=== PATIENT | male | born 1955 | race Two or more races ===

== ENCOUNTER 2019-05-29 09:38 | Inpatient (IN) | payer MEDICARE ==
[2019-05-29] VITALS (16 sets, daily range): BP systolic 105–143; BP diastolic 65–91
[~2019-05-29] VITALS: Ht 165.1 cm; Wt 73.5 kg
[2019-05-29] MEDS ORDERED: ETOMIDATE 2MG/ML 10ML VIAL IV ONE (09:41)
[2019-05-29] MEDS ORDERED: SUCCINYLCHOLINE CHLORIDE 200MG/10ML IV ONE (09:41)
[2019-05-29] MEDS ORDERED: PROPOFOL 10MG/ML 100ML 100 ML IV ONE (09:59)
[2019-05-29] MEDS ORDERED: IPRATROPIUM BROMIDE (0.02%) 0.5MG/2.5ML NEB HHN ONE (10:15)
[2019-05-29] MEDS ORDERED: SODIUM CHLORIDE 0.9% 1000ML BAG (SEPSIS BOLUS) IV ONE (10:15)
[2019-05-29] MEDS ORDERED: ALBUTEROL (0.083%) 2.5MG/3ML NEB HHN ONE (10:15)
[2019-05-29] MEDS ORDERED: CEFTRIAXONE 2 G PREMIX 50 ML IV SCH (10:15)
[2019-05-29] MEDS ORDERED: LEVOFLOXACIN 750MG PREMIX 150 ML IV SCH (10:15)
[2019-05-29 10:18] LABS: BASOPHILS % 0.7 % (0.0-2.0); EOSINOPHILS % 1.2 % (0.0-5.0); HEMATOCRIT. 39.6 % (42.0-52.0); HEMOGLOBIN. 13.1 g/dL (14.0-18.0); MEAN CORPUSCULAR HEMOGLOBIN 31.3 pg (28.0-32.0); MEAN CORPUSCULAR VOLUME 94.7 fL (80.0-94.0); MONOCYTES % 7.3 % (2.0-8.0); NEUTROPHILS % 67.8 % (40.0-76.0); PLATELET 329 x1000/uL (130-400); RED BLOOD CELL COUNT 4.18 mill/uL (4.7-6.1); RED CELL DISTRIBUTION WIDTH 15.3 % (11.6-14.6)
[2019-05-29 10:26] LABS: CHLORIDE 108 mEq/L (98-107)
[2019-05-29 10:52] LABS: INR 1.1; PROTHROMBIN TIME 11.4 sec (9.6-11.0)
[2019-05-29 10:55] LABS: CLARITY URINE CLOUDY (CLEAR); COLOR URINE YELLOW (YELLOW); KETONES URINE TRACE (NEGATIVE); LEUKOCYTE ESTERASE URINE 1+ (NEGATIVE); NITRITE URINE NEGATIVE (NEGATIVE); OCCULT BLOOD URINE 1+ (NEGATIVE); PROTEIN URINE TRACE (NEGATIVE); SPECIFIC GRAVITY URINE 1.022 (1.005-1.030); UROBILINOGEN URINE 0.2 E.U./dL (0.2-1.0)
[2019-05-29] MEDS ORDERED: GUAIFENESIN 200MG/10ML SUGAR FREE UDC PO PRN (12:45)
[2019-05-29] MEDS ORDERED: CLONIDINE 0.1MG TABLET PO PRN (12:45)
[2019-05-29] MEDS ORDERED: CEFTRIAXONE 1 G PREMIX 50 ML IV SCH (12:45)
[2019-05-29] MEDS ORDERED: MAGNESIUM/ALUMINUM HYDROXIDE/SIMETHICONE 30ML UDC PO PRN (12:45)
[2019-05-29] MEDS ORDERED: ONDANSETRON HCL 4MG/2ML INJ IV PRN (12:45)
[2019-05-29] MEDS ORDERED: DOCUSATE SODIUM 100MG CAPSULE PO PRN (12:45)
[2019-05-29] MEDS ORDERED: ACETAMINOPHEN 325MG TABLET PO PRN (12:45)
[2019-05-29 12:57] LABS: PHOSPHORUS 4.2 mg/dL (2.5-4.9)
[2019-05-29 13:09] LABS: BG BASE EXCESS -5.3 mmol/L (-2.0-2.0); BG CARBOXYHEMOGLOBIN 0.2 % (0.5-1.5); BG DEOXYHEMOGLOBIN 0.3 % (0.0-5.0); BG FRACTION INSPIRED OXYGEN 100; BG HCO3 ACT 20.8 mmol/L (22.0-26.0); BG METHEMOGLOBIN 0.3 % (0.0-1.5); BG OXYGEN SATURATION 99.7 % (92.0-98.5); BG OXYHEMOGLOBIN 99.2 % (94.0-97.0); BG PCO2 42.9 mmHg (35.0-45.0); BG PH 7.303 (7.350-7.450); BG PO2 481.6 mmHg (75.0-100.0); BG SAMPLE SITE RIGHT BRACHIAL; BG TIDAL VOLUME(mL) 550 mL; BG TOTAL HEMOGLOBIN 11.8 g/dL (12.0-18.0); BG VENT MODE VENT - A/C; BG VENT RATE 16 set
[2019-05-29] MEDS ORDERED: PROPOFOL 10MG/ML 100ML 100 ML IV SCH (14:15)
[2019-05-29] MEDS ORDERED: DEXTROSE 50% WATER 50ML SYRINGE IV PRN (14:45)
[2019-05-29] MEDS ORDERED: ENOXAPARIN 40MG/0.4ML SYR SUBCUT SCH (16:00)
[2019-05-29] MEDS: SODIUM CHLORIDE 0.9% 1,000 ML IV SCH (16:06)
[2019-05-29] MEDS: BLOOD SUGAR DIAGNOSTIC STRIP TEST SCH ×2 (17:13→20:14)
[2019-05-29] MEDS: METRONIDAZOLE 500 MG PREMIX 100 ML IV SCH ×2 (17:19→23:30)
[2019-05-29] MEDS: FENTANYL CITRATE/PF 500 MCG in SODIUM CHLORIDE 0.9% 40 ML IV PRN ×2 (17:41→21:41)
[2019-05-29] MEDS: MIDAZOLAM HCL 50 MG in DEXTROSE 5% WATER 40 ML IV PRN ×2 (17:42→23:15)
[2019-05-29 18:17] LABS: CREATINE KINASE MB FRACTION 6.8 ng/mL (0.5-3.6)
[2019-05-29] MEDS: INSULIN LISPRO 100 UNITS/ML SUBCUT SCH ×2 (18:20→20:14)
[2019-05-29 20:17] LABS: *AMPHETAMINES SCREEN URINE NEGATIVE (NEGATIVE); METHADONE URINE SCREEN NEGATIVE (NEGATIVE); OPIATES URINE SCREEN PRESUMTIVE POSITIVE (NEGATIVE); PHENCYCLIDINE URINE SCREEN NEGATIVE (NEGATIVE)
[2019-05-29 20:18] LABS: *BARBITURATES SCREEN URINE NEGATIVE (NEGATIVE); *BENZODIAZEPINES SCREEN URINE PRESUMTIVE POSITIVE (NEGATIVE); *COCAINE SCREEN URINE NEGATIVE (NEGATIVE); CANNABINOID URINE SCREEN NEGATIVE (NEGATIVE)
[2019-05-30] VITALS (60 sets, daily range): BP systolic 93–187; BP diastolic 60–116
[2019-05-30 00:27] LABS: CREATINE KINASE MB FRACTION 5.2 ng/mL (0.5-3.6)
[2019-05-30] MEDS: SODIUM CHLORIDE 0.9% 1,000 ML IV SCH ×2 (03:00→14:34)
[2019-05-30] MEDS: FENTANYL CITRATE/PF 500 MCG in SODIUM CHLORIDE 0.9% 40 ML IV PRN ×4 (03:08→20:18)
[2019-05-30 05:24] LABS: BASOPHILS % 0.6 % (0.0-2.0); EOSINOPHILS % 1.6 % (0.0-5.0); HEMATOCRIT. 33.6 % (42.0-52.0); HEMOGLOBIN. 11.1 g/dL (14.0-18.0); LYMPHOCYTES % 19.1 % (20.0-50.0); MEAN CORPUSCULAR HEMOGLOBIN 31.3 pg (28.0-32.0); MEAN PLATELET VOLUME 7.7 fl (7.4-10.4); MONOCYTES % 8.3 % (2.0-8.0); NEUTROPHILS % 70.4 % (40.0-76.0); PLATELET 232 x1000/uL (130-400); RED BLOOD CELL COUNT 3.54 mill/uL (4.7-6.1); RED CELL DISTRIBUTION WIDTH 14.9 % (11.6-14.6)
[2019-05-30 05:34] LABS: CHLORIDE 115 mEq/L (98-107)
[2019-05-30 05:47] LABS: LDL CHOLESTEROL 74 mg/dL (5-100)
[2019-05-30 05:48] LABS: HDL CHOLESTEROL 33 mg/dL (40-59)
[2019-05-30] MEDS: BLOOD SUGAR DIAGNOSTIC STRIP TEST SCH ×4 (08:07→20:59)
[2019-05-30] MEDS: INSULIN LISPRO 100 UNITS/ML SUBCUT SCH ×4 (08:07→20:59)
[2019-05-30] MEDS: IPRATROPIUM/ALBUTEROL 0.5-3(2.5)MG/3ML NEB HHN PRN (08:08)
[2019-05-30] MEDS: PANTOPRAZOLE SODIUM 40 MG/VIAL IV SCH (08:16)
[2019-05-30] MEDS: METRONIDAZOLE 500 MG PREMIX 100 ML IV SCH ×2 (08:17→16:35)
[2019-05-30 08:33] LABS: BG BASE EXCESS -1.7 mmol/L (-2.0-2.0); BG CARBOXYHEMOGLOBIN 0.3 % (0.5-1.5); BG DEOXYHEMOGLOBIN 1.8 % (0.0-5.0); BG FRACTION INSPIRED OXYGEN 35; BG HCO3 ACT 23.2 mmol/L (22.0-26.0); BG METHEMOGLOBIN 0.2 % (0.0-1.5); BG OXYGEN SATURATION 98.2 % (92.0-98.5); BG OXYHEMOGLOBIN 97.7 % (94.0-97.0); BG PH 7.381 (7.350-7.450); BG PO2 131.6 mmHg (75.0-100.0); BG SAMPLE SITE LEFT BRACHIAL; BG TIDAL VOLUME(mL) 550 mL; BG TOTAL HEMOGLOBIN 11.8 g/dL (12.0-18.0); BG VENT MODE VENT - A/C; BG VENT RATE 16 set
[2019-05-30] MEDS: HYDRALAZINE 20MG/ML VIAL IV PRN (08:41)
[2019-05-30] MEDS: CEFTRIAXONE 1 G PREMIX 50 ML IV SCH (09:32)
[2019-05-30] MEDS ORDERED: LORAZEPAM 2MG/ML CPJ IV PRN (10:15)
[2019-05-30] MEDS: LORAZEPAM 2MG/ML CPJ IV PRN ×2 (10:42→21:21)
[2019-05-30] MEDS ORDERED: DILTIAZEM HCL 5MG/ML 5ML VIAL IV PRN (11:15)
[2019-05-30] MEDS ORDERED: IOHEXOL-350 100 ML BOTTLE ONE (12:14)
[2019-05-30] MEDS: MIDAZOLAM HCL 50 MG in DEXTROSE 5% WATER 40 ML IV PRN ×2 (12:40→18:21)
[2019-05-30] MEDS: FOLIC ACID 1MG TABLET PO SCH (13:10)
[2019-05-30] MEDS: THIAMINE HCL 100MG TABLET PO SCH (13:11)
[2019-05-30] MEDS ORDERED: ENOXAPARIN 80MG/0.8ML SYR SUBCUT SCH (14:30)
[2019-05-30] MEDS: IPRATROPIUM/ALBUTEROL 0.5-3(2.5)MG/3ML NEB HHN SCH (16:51)
[2019-05-30] MEDS: DIPHENHYDRAMINE 50MG/ML VIAL IV PRN (21:21)
[2019-05-30] MEDS ORDERED: SODIUM CHLORIDE 0.9% IV PRN (22:28)
[2019-05-30] MEDS ORDERED: FENTANYL CITRATE IV PRN (22:28)
[2019-05-30] MEDS ORDERED: DEXTROSE 5% IV PRN (22:28)
[2019-05-30] MEDS ORDERED: WATER IV PRN (22:28)
[2019-05-30] MEDS ORDERED: MIDAZOLAM HCL IV PRN (22:28)
[2019-05-30] MEDS ORDERED: MIDAZOLAM HCL 100 MG in DEXT 5% WATER 80 ML IV PRN (22:33)
[2019-05-30] MEDS ORDERED: FENTANYL CITRATE/PF 1,000 MCG in SODIUM CHLORIDE 0.9% 80 ML IV PRN (22:33)
[2019-05-30] MEDS: ENOXAPARIN 80MG/0.8ML SYR SUBCUT SCH (23:53)
[2019-05-31] VITALS (85 sets, daily range): BP systolic 107–186; BP diastolic 65–126
[2019-05-31] MEDS: METRONIDAZOLE 500 MG PREMIX 100 ML IV SCH ×3 (01:00→17:20)
[2019-05-31] MEDS: SODIUM CHLORIDE 0.9% 1,000 ML IV SCH ×2 (04:51→17:41)
[2019-05-31] MEDS: DIPHENHYDRAMINE 50MG/ML VIAL IV PRN ×2 (05:23→18:42)
[2019-05-31] MEDS: LORAZEPAM 2MG/ML CPJ IV PRN ×2 (05:23→18:41)
[2019-05-31 05:24] LABS: BASOPHILS % 0.8 % (0.0-2.0); EOSINOPHILS % 3.8 % (0.0-5.0); HEMATOCRIT. 31.3 % (42.0-52.0); HEMOGLOBIN. 10.5 g/dL (14.0-18.0); LYMPHOCYTES % 19.3 % (20.0-50.0); MEAN CORPUSCULAR HEMOGLOBIN 31.7 pg (28.0-32.0); MEAN CORPUSCULAR VOLUME 94.1 fL (80.0-94.0); MEAN PLATELET VOLUME 7.9 fl (7.4-10.4); MONOCYTES % 8.6 % (2.0-8.0); NEUTROPHILS % 67.5 % (40.0-76.0); PLATELET 207 x1000/uL (130-400); RED BLOOD CELL COUNT 3.32 mill/uL (4.7-6.1); RED CELL DISTRIBUTION WIDTH 14.4 % (11.6-14.6)
[2019-05-31 05:25] LABS: CHLORIDE 111 mEq/L (98-107)
[2019-05-31] MEDS: IPRATROPIUM/ALBUTEROL 0.5-3(2.5)MG/3ML NEB HHN SCH ×4 (07:39→20:15)
[2019-05-31] MEDS: INSULIN LISPRO 100 UNITS/ML SUBCUT SCH ×4 (08:05→21:00)
[2019-05-31] MEDS: BLOOD SUGAR DIAGNOSTIC STRIP TEST SCH ×4 (08:05→21:02)
[2019-05-31 08:22] LABS: BG BASE EXCESS -2.2 mmol/L (-2.0-2.0); BG CARBOXYHEMOGLOBIN 0.3 % (0.5-1.5); BG DEOXYHEMOGLOBIN 2.5 % (0.0-5.0); BG FRACTION INSPIRED OXYGEN 35; BG HCO3 ACT 21.9 mmol/L (22.0-26.0); BG METHEMOGLOBIN 0.3 % (0.0-1.5); BG OXYGEN SATURATION 97.5 % (92.0-98.5); BG OXYHEMOGLOBIN 96.9 % (94.0-97.0); BG PCO2 35.5 mmHg (35.0-45.0); BG PH 7.409 (7.350-7.450); BG PO2 110.6 mmHg (75.0-100.0); BG SAMPLE SITE RIGHT RADIAL; BG TIDAL VOLUME(mL) 550 mL; BG TOTAL HEMOGLOBIN 10.8 g/dL (12.0-18.0); BG VENT MODE VENT - A/C; BG VENT RATE 16 set
[2019-05-31] MEDS: FOLIC ACID 1MG TABLET PO SCH (09:07)
[2019-05-31] MEDS: PANTOPRAZOLE SODIUM 40 MG/VIAL IV SCH (09:07)
[2019-05-31] MEDS: THIAMINE HCL 100MG TABLET PO SCH (09:07)
[2019-05-31] MEDS: ENOXAPARIN 80MG/0.8ML SYR SUBCUT SCH ×2 (09:08→21:02)
[2019-05-31] MEDS ORDERED: POTASSIUM CHLORIDE INJ 40 MEQ in DEXT 5% WATER 250 ML IV ONE (10:30)
[2019-05-31] MEDS: CEFTRIAXONE 1 G PREMIX 50 ML IV SCH (10:55)
[2019-05-31 13:21] LABS: BG BASE EXCESS -1.6 mmol/L (-2.0-2.0); BG CARBOXYHEMOGLOBIN 0.2 % (0.5-1.5); BG FRACTION INSPIRED OXYGEN 35; BG HCO3 ACT 22.7 mmol/L (22.0-26.0); BG METHEMOGLOBIN 0.1 % (0.0-1.5); BG OXYHEMOGLOBIN 96.7 % (94.0-97.0); BG PCO2 37.2 mmHg (35.0-45.0); BG PH 7.404 (7.350-7.450); BG PO2 94.7 mmHg (75.0-100.0); BG PRESSURE SUPPORT 8; BG SAMPLE SITE RIGHT RADIAL; BG TOTAL HEMOGLOBIN 11.6 g/dL (12.0-18.0); BG VENT MODE VENT - CPAP
[2019-05-31] MEDS: HYDRALAZINE 20MG/ML VIAL IV PRN (14:02)
[2019-05-31] MEDS: HALOPERIDOL LACTATE 5MG/ML VIAL IM PRN (21:20)
[2019-05-31] MEDS ORDERED: KCL 20MEQ/100ML PREMIX 100 ML IV NR (22:30)
[2019-06-01] VITALS (32 sets, daily range): BP systolic 135–169; BP diastolic 78–149
[2019-06-01] MEDS: IPRATROPIUM/ALBUTEROL 0.5-3(2.5)MG/3ML NEB HHN SCH ×6 (00:23→20:13)
[2019-06-01] MEDS: METRONIDAZOLE 500 MG PREMIX 100 ML IV SCH ×3 (00:45→15:46)
[2019-06-01] MEDS: HALOPERIDOL LACTATE 5MG/ML VIAL IM PRN (01:53)
[2019-06-01 04:24] LABS: CHLORIDE 112 mEq/L (98-107)
[2019-06-01 04:26] LABS: BASOPHILS % 0.3 % (0.0-2.0); EOSINOPHILS % 0.3 % (0.0-5.0); HEMATOCRIT. 32.4 % (42.0-52.0); LYMPHOCYTES % 9.1 % (20.0-50.0); MEAN CORPUSCULAR VOLUME 94.1 fL (80.0-94.0); MEAN PLATELET VOLUME 7.9 fl (7.4-10.4); MONOCYTES % 7.4 % (2.0-8.0); NEUTROPHILS % 82.9 % (40.0-76.0); PLATELET 212 x1000/uL (130-400); RED BLOOD CELL COUNT 3.44 mill/uL (4.7-6.1); RED CELL DISTRIBUTION WIDTH 14.5 % (11.6-14.6)
[2019-06-01] MEDS: HYDROCODONE/ACETAMINOPHEN 5/325MG TABLET PO PRN ×4 (05:31→21:31)
[2019-06-01] MEDS: SODIUM CHLORIDE 0.9% 1,000 ML IV SCH ×2 (06:53→20:28)
[2019-06-01] MEDS ORDERED: POTASSIUM CHLORIDE 20MEQ/PACKET PO ONE (07:00)
[2019-06-01] MEDS ORDERED: POTASSIUM CHLORIDE INJ 40 MEQ in DEXT 5% WATER 250 ML IV SCH (08:00)
[2019-06-01] MEDS: INSULIN LISPRO 100 UNITS/ML SUBCUT SCH ×4 (08:20→20:29)
[2019-06-01] MEDS: BLOOD SUGAR DIAGNOSTIC STRIP TEST SCH ×4 (08:25→20:29)
[2019-06-01] MEDS: FOLIC ACID 1MG TABLET PO SCH (08:31)
[2019-06-01] MEDS: ENOXAPARIN 80MG/0.8ML SYR SUBCUT SCH ×2 (08:31→20:31)
[2019-06-01] MEDS: PANTOPRAZOLE SODIUM 40 MG/VIAL IV SCH (08:31)
[2019-06-01] MEDS: THIAMINE HCL 100MG TABLET PO SCH (08:31)
[2019-06-01] MEDS: CEFTRIAXONE 1 G PREMIX 50 ML IV SCH (10:28)
[2019-06-01] MEDS: ATORVASTATIN CALCIUM 10MG TABLET PO SCH (20:28)
[2019-06-02] VITALS (18 sets, daily range): BP systolic 128–165; BP diastolic 73–98
[2019-06-02] MEDS: METRONIDAZOLE 500 MG PREMIX 100 ML IV SCH ×3 (00:30→16:29)
[2019-06-02] MEDS: HYDROCODONE/ACETAMINOPHEN 5/325MG TABLET PO PRN ×2 (01:16→05:17)
[2019-06-02] MEDS: IPRATROPIUM/ALBUTEROL 0.5-3(2.5)MG/3ML NEB HHN SCH ×6 (04:00→20:00)
[2019-06-02 06:17] LABS: BASOPHILS % 0.5 % (0.0-2.0); HEMATOCRIT. 32.2 % (42.0-52.0); HEMOGLOBIN. 10.9 g/dL (14.0-18.0); LYMPHOCYTES % 16.5 % (20.0-50.0); MEAN CORPUSCULAR HEMOGLOBIN 31.6 pg (28.0-32.0); MEAN CORPUSCULAR VOLUME 93.7 fL (80.0-94.0); MEAN PLATELET VOLUME 8.6 fl (7.4-10.4); MONOCYTES % 8.3 % (2.0-8.0); NEUTROPHILS % 72.7 % (40.0-76.0); PLATELET 219 x1000/uL (130-400); RED BLOOD CELL COUNT 3.44 mill/uL (4.7-6.1); RED CELL DISTRIBUTION WIDTH 14.4 % (11.6-14.6)
[2019-06-02 06:22] LABS: CHLORIDE 110 mEq/L (98-107)
[2019-06-02] MEDS: BLOOD SUGAR DIAGNOSTIC STRIP TEST SCH ×4 (07:50→20:34)
[2019-06-02] MEDS: INSULIN LISPRO 100 UNITS/ML SUBCUT SCH ×4 (08:20→20:34)
[2019-06-02] MEDS: FOLIC ACID 1MG TABLET PO SCH (09:09)
[2019-06-02] MEDS: ENOXAPARIN 80MG/0.8ML SYR SUBCUT SCH (09:09)
[2019-06-02] MEDS: THIAMINE HCL 100MG TABLET PO SCH (09:09)
[2019-06-02] MEDS: FAMOTIDINE 20MG TABLET PO SCH ×2 (09:09→20:27)
[2019-06-02] MEDS ORDERED: POTASSIUM CHLORIDE 20MEQ/PACKET PO NR (09:15)
[2019-06-02] MEDS: HYDROMORPHONE HCL/PF 2MG/ML CPJ IV PRN ×3 (09:29→20:29)
[2019-06-02] MEDS: CEFTRIAXONE 1 G PREMIX 50 ML IV SCH (12:46)
[2019-06-02] MEDS: LORAZEPAM 2MG/ML CPJ IV PRN (14:53)
[2019-06-02] MEDS: APIXABAN 5 MG TABLET PO SCH (16:27)
[2019-06-02] MEDS ORDERED: DILTIAZEM HCL 60MG TABLET PO SCH ×3 (19:00→22:00)
[2019-06-02] MEDS: ATORVASTATIN CALCIUM 10MG TABLET PO SCH (20:33)
[2019-06-02] MEDS: DILTIAZEM HCL 60MG TABLET PO SCH (21:36)
[2019-06-03] VITALS: BP 131/84
[2019-06-03] MEDS: METRONIDAZOLE 500 MG PREMIX 100 ML IV SCH ×4 (00:25→23:58)
[2019-06-03] MEDS: HYDROMORPHONE HCL/PF 2MG/ML CPJ IV PRN ×6 (00:28→21:38)
[2019-06-03 04:00] VITALS: BP 139/86
[2019-06-03] MEDS: DILTIAZEM HCL 60MG TABLET PO SCH ×4 (05:00→23:58)
[2019-06-03 06:02] LABS: BASOPHILS % 0.6 % (0.0-2.0); HEMATOCRIT. 35.1 % (42.0-52.0); HEMOGLOBIN. 12.3 g/dL (14.0-18.0); LYMPHOCYTES % 17.7 % (20.0-50.0); MEAN CORPUSCULAR HEMOGLOBIN 32.1 pg (28.0-32.0); MEAN CORPUSCULAR VOLUME 91.7 fL (80.0-94.0); MEAN PLATELET VOLUME 7.7 fl (7.4-10.4); MONOCYTES % 10.4 % (2.0-8.0); NEUTROPHILS % 67.3 % (40.0-76.0); PLATELET 266 x1000/uL (130-400); RED BLOOD CELL COUNT 3.83 mill/uL (4.7-6.1); RED CELL DISTRIBUTION WIDTH 14.3 % (11.6-14.6)
[2019-06-03 06:22] LABS: CHLORIDE 107 mEq/L (98-107)
[2019-06-03] MEDS: BLOOD SUGAR DIAGNOSTIC STRIP TEST SCH ×4 (06:52→21:35)
[2019-06-03] MEDS: INSULIN LISPRO 100 UNITS/ML SUBCUT SCH ×4 (07:46→21:00)
[2019-06-03] MEDS: APIXABAN 5 MG TABLET PO SCH ×2 (08:08→17:10)
[2019-06-03] MEDS: FOLIC ACID 1MG TABLET PO SCH (08:08)
[2019-06-03] MEDS: FAMOTIDINE 20MG TABLET PO SCH ×2 (08:08→21:37)
[2019-06-03] MEDS: THIAMINE HCL 100MG TABLET PO SCH (08:08)
[2019-06-03] MEDS: IPRATROPIUM/ALBUTEROL 0.5-3(2.5)MG/3ML NEB HHN SCH ×4 (08:12→19:43)
[2019-06-03 08:46] VITALS: BP 135/75
[2019-06-03] MEDS: CEFTRIAXONE 1 G PREMIX 50 ML IV SCH (11:41)
[2019-06-03 11:56] VITALS: BP 127/80
[2019-06-03] MEDS: LORAZEPAM 2MG/ML CPJ IV PRN ×2 (14:45→18:53)
[2019-06-03 15:51] VITALS: BP 131/78
[2019-06-03 20:41] VITALS: BP 115/61
[2019-06-03] MEDS: ATORVASTATIN CALCIUM 10MG TABLET PO SCH (21:35)
[2019-06-04] VITALS (7 sets, daily range): BP systolic 96–138; BP diastolic 70–86
[2019-06-04] MEDS: LORAZEPAM 2MG/ML CPJ IV PRN ×2 (00:32→08:38)
[2019-06-04] MEDS: HYDROMORPHONE HCL/PF 2MG/ML CPJ IV PRN ×6 (01:41→22:46)
[2019-06-04 05:15] LABS: CHLORIDE 108 mEq/L (98-107)
[2019-06-04 05:18] LABS: BASOPHILS % 0.6 % (0.0-2.0); EOSINOPHILS % 3.7 % (0.0-5.0); HEMATOCRIT. 33.3 % (42.0-52.0); HEMOGLOBIN. 11.3 g/dL (14.0-18.0); LYMPHOCYTES % 18.8 % (20.0-50.0); MEAN CORPUSCULAR HEMOGLOBIN 31.5 pg (28.0-32.0); MEAN CORPUSCULAR VOLUME 92.6 fL (80.0-94.0); MEAN PLATELET VOLUME 7.9 fl (7.4-10.4); MONOCYTES % 10.4 % (2.0-8.0); NEUTROPHILS % 66.5 % (40.0-76.0); PLATELET 244 x1000/uL (130-400); RED BLOOD CELL COUNT 3.59 mill/uL (4.7-6.1); RED CELL DISTRIBUTION WIDTH 14.1 % (11.6-14.6)
[2019-06-04] MEDS: DILTIAZEM HCL 60MG TABLET PO SCH (06:24)
[2019-06-04] MEDS: BLOOD SUGAR DIAGNOSTIC STRIP TEST SCH ×4 (07:02→21:01)
[2019-06-04] MEDS: INSULIN LISPRO 100 UNITS/ML SUBCUT SCH ×4 (07:50→21:00)
[2019-06-04] MEDS: METRONIDAZOLE 500 MG PREMIX 100 ML IV SCH (08:38)
[2019-06-04] MEDS: FAMOTIDINE 20MG TABLET PO SCH ×2 (08:38→21:10)
[2019-06-04] MEDS: FOLIC ACID 1MG TABLET PO SCH (08:38)
[2019-06-04] MEDS: APIXABAN 5 MG TABLET PO SCH ×2 (08:49→18:02)
[2019-06-04] MEDS: THIAMINE HCL 100MG TABLET PO SCH (08:49)
[2019-06-04] MEDS: IPRATROPIUM/ALBUTEROL 0.5-3(2.5)MG/3ML NEB HHN SCH ×2 (10:16)
[2019-06-04] MEDS: CEFTRIAXONE 1 G PREMIX 50 ML IV SCH (10:43)
[2019-06-04] MEDS ORDERED: MAGNESIUM/ALUMINUM HYDROXIDE/SIMETHICONE 30ML UDC PO PRN (12:30)
[2019-06-04] MEDS: DILTIAZEM HCL 300MG CAPSULE SR 24HR PO SCH (13:30)
[2019-06-04] MEDS: IPRATROPIUM/ALBUTEROL 0.5-3(2.5)MG/3ML NEB HHN PRN ×2 (14:42→16:27)
[2019-06-04] MEDS ORDERED: POTASSIUM CHLORIDE 20MEQ TABLET SR PO NR (15:45)
[2019-06-04] MEDS: ATORVASTATIN CALCIUM 10MG TABLET PO SCH (21:09)
[2019-06-05] VITALS: BP 136/76
[2019-06-05] MEDS: HYDROMORPHONE HCL/PF 2MG/ML CPJ IV PRN ×4 (02:51→15:59)
[2019-06-05 04:03] VITALS: BP 126/76
[2019-06-05] MEDS: BLOOD SUGAR DIAGNOSTIC STRIP TEST SCH ×4 (06:16→21:00)
[2019-06-05] MEDS: INSULIN LISPRO 100 UNITS/ML SUBCUT SCH ×4 (07:50→21:00)
[2019-06-05 08:00] VITALS: BP 136/81
[2019-06-05] MEDS: FOLIC ACID 1MG TABLET PO SCH (09:22)
[2019-06-05] MEDS: APIXABAN 5 MG TABLET PO SCH ×2 (09:22→17:42)
[2019-06-05] MEDS: FAMOTIDINE 20MG TABLET PO SCH ×2 (09:22→21:00)
[2019-06-05] MEDS: DILTIAZEM HCL 300MG CAPSULE SR 24HR PO SCH (09:23)
[2019-06-05] MEDS: THIAMINE HCL 100MG TABLET PO SCH (09:24)
[2019-06-05 12:00] VITALS: BP 115/74
[2019-06-05 20:00] VITALS: BP 136/74
[2019-06-05] MEDS: ATORVASTATIN CALCIUM 10MG TABLET PO SCH (21:00)
[2019-06-09] MEDS ORDERED: APIXABAN 5 MG TABLET PO SCH (17:00)
== END 2019-06-05 22:10 | DRG 871 ==
LOC: ER 09:38 → CVICU 12:31 → EDBEDREQ 12:36 → EDBEDREQTM 12:36 → ENRESERV 13:48 → 6WST 06-02 14:23
PROVIDERS: ADMIT Internal Medicine; ATTEND Internal Medicine
PROC: 5A1945Z Respiratory Ventilation, 24-96 Consecutive Hours (ICD-10-PCS; principal; 2019-05-29)
PROC: 0BH17EZ Insertion of Endotracheal Airway into Trachea, Via Natural or Artificial Opening (ICD-10-PCS; 2019-05-29)
DX: A41.9 Sepsis, unspecified organism (principal); I26.99 Other pulmonary embolism without acute cor pulmonale; J96.01 Acute respiratory failure with hypoxia; J68.0 Bronchitis and pneumonitis due to chemicals, gases, fumes and vapors; I47.1 Supraventricular tachycardia; I48.92 Unspecified atrial flutter; N39.0 Urinary tract infection, site not specified; J44.1 Chronic obstructive pulmonary disease with (acute) exacerbation; T40.601A Poisoning by unspecified narcotics, accidental (unintentional), initial encounter; T42.4X1A Poisoning by benzodiazepines, accidental (unintentional), initial encounter; G40.909 Epilepsy, unspecified, not intractable, without status epilepticus; I10 Essential (primary) hypertension; F10.10 Alcohol abuse, uncomplicated; D64.9 Anemia, unspecified; G89.29 Other chronic pain; S01.112A Laceration without foreign body of left eyelid and periocular area, initial encounter; R73.9 Hyperglycemia, unspecified; M54.5 Low back pain; M53.3 Sacrococcygeal disorders, not elsewhere classified; W18.39XA Other fall on same level, initial encounter; Y92.230 Patient room in hospital as the place of occurrence of the external cause; Y92.89 Other specified places as the place of occurrence of the external cause; Z78.1 Physical restraint status; Z87.891 Personal history of nicotine dependence; Y93.89 Activity, other specified; Y99.8 Other external cause status
CPT/HCPCS: 36415; 36600; 71045; 71275; 72170; 80048; 80061; 80185; 80305; 81003; 82375; 82550; 82553; 82693; 82805; 82962; 83036; 83605; 83735; 83880; 84100; 84132; 84145; 84443; 84484; 85379; 87070; 92610; 93005; 93306; 93970; 94002; 94003; 94640; 94644; 97116; 97162; 99291; C9113; J0330; J0360; J0696; J1170; J1200; J1630; J1650; J1956; J2060; J2250; J2704; J3010; J3480; J3490; J7030; J7040; J7050; J7060; J7611; J7620; Q9967; A4315

== ENCOUNTER 2019-06-21 09:15 | Inpatient (IN) | payer MEDICARE ==
[~2019-06-21] VITALS: Ht 185.4 cm; Wt 76.2 kg
[2019-06-21 10:07] LABS: BASOPHILS % 0.3 % (0.0-2.0); EOSINOPHILS % 0.2 % (0.0-5.0); HEMATOCRIT. 37.8 % (42.0-52.0); HEMOGLOBIN. 12.5 g/dL (14.0-18.0); LYMPHOCYTES % 7.1 % (20.0-50.0); MEAN CORPUSCULAR HEMOGLOBIN 31.1 pg (28.0-32.0); MEAN CORPUSCULAR VOLUME 93.8 fL (80.0-94.0); MEAN PLATELET VOLUME 7.9 fl (7.4-10.4); MONOCYTES % 8.4 % (2.0-8.0); PLATELET 207 x1000/uL (130-400); RED BLOOD CELL COUNT 4.03 mill/uL (4.7-6.1); RED CELL DISTRIBUTION WIDTH 15.2 % (11.6-14.6)
[2019-06-21 10:12] LABS: CHLORIDE 112 mEq/L (98-107)
[2019-06-21] MEDS ORDERED: KETOROLAC 30MG/ML VIAL IV ONE (11:15)
[2019-06-21] MEDS ORDERED: MAGNESIUM/ALUMINUM HYDROXIDE/SIMETHICONE 30ML UDC PO PRN (12:30)
[2019-06-21] MEDS ORDERED: DOCUSATE SODIUM 100MG CAPSULE PO PRN (12:30)
[2019-06-21] MEDS ORDERED: DIPHENHYDRAMINE 50MG/ML VIAL IV PRN (12:30)
[2019-06-21] MEDS ORDERED: IPRATROPIUM/ALBUTEROL 0.5-3(2.5)MG/3ML NEB HHN PRN (12:30)
[2019-06-21] MEDS ORDERED: CLONIDINE 0.1MG TABLET PO PRN (12:30)
[2019-06-21] MEDS ORDERED: GUAIFENESIN 200MG/10ML SUGAR FREE UDC PO PRN (12:30)
[2019-06-21] MEDS ORDERED: ONDANSETRON HCL 4MG/2ML INJ IV PRN (12:30)
[2019-06-21 15:51] LABS: PHOSPHORUS 2.5 mg/dL (2.5-4.9)
[2019-06-21] MEDS: HYDROMORPHONE HCL/PF 2MG/ML CPJ IV PRN ×2 (15:58→20:02)
[2019-06-21] MEDS: ENOXAPARIN 40MG/0.4ML SYR SUBCUT SCH (15:59)
[2019-06-21 16:00] VITALS: BP 147/85
[2019-06-21] MEDS ORDERED: PHENYLEPHRINE HCL 1% 15 ML NASAL SPRAY BOTHNSTRLS PRN (16:15)
[2019-06-21 16:19] VITALS: BP 129/81
[2019-06-21] MEDS ORDERED: TRIAMCINOLONE ACETONIDE 0.1% DENTAL PASTE 5GM DT NR (17:30)
[2019-06-21] MEDS ORDERED: GABA800T97 MT (17:43)
[2019-06-21] MEDS ORDERED: IBUP-2029 MT (17:52)
[2019-06-21 20:00] VITALS: BP 131/76
[2019-06-21] MEDS: ACETAMINOPHEN 325MG TABLET PO PRN (21:49)
[2019-06-22] VITALS: BP 131/76
[2019-06-22] MEDS: HYDROMORPHONE HCL/PF 2MG/ML CPJ IV PRN ×5 (00:22→16:53)
[2019-06-22] MEDS: ACETAMINOPHEN 325MG TABLET PO PRN (03:10)
[2019-06-22 04:00] VITALS: BP 120/76
[2019-06-22] MEDS ORDERED: LISI30TA36 MT (07:28)
[2019-06-22] MEDS ORDERED: KEPPSOL MT (07:28)
[2019-06-22 07:52] LABS: BASOPHILS % 0.5 % (0.0-2.0); EOSINOPHILS % 3.3 % (0.0-5.0); HEMOGLOBIN. 12.1 g/dL (14.0-18.0); LYMPHOCYTES % 30.7 % (20.0-50.0); MEAN CORPUSCULAR HEMOGLOBIN 31.5 pg (28.0-32.0); MEAN CORPUSCULAR VOLUME 93.9 fL (80.0-94.0); MEAN PLATELET VOLUME 8.3 fl (7.4-10.4); MONOCYTES % 7.8 % (2.0-8.0); NEUTROPHILS % 57.7 % (40.0-76.0); PLATELET 157 x1000/uL (130-400); RED BLOOD CELL COUNT 3.84 mill/uL (4.7-6.1); RED CELL DISTRIBUTION WIDTH 14.5 % (11.6-14.6)
[2019-06-22 08:17] LABS: CHLORIDE 109 mEq/L (98-107)
[2019-06-22 08:28] LABS: LDL CHOLESTEROL 76 mg/dL (5-100)
[2019-06-22 08:30] LABS: HDL CHOLESTEROL 40 mg/dL (40-59)
[2019-06-22] MEDS: ENOXAPARIN 40MG/0.4ML SYR SUBCUT SCH (12:54)
[2019-06-22] MEDS ORDERED: APIXABAN 5 MG TABLET PO SCH (17:00)
[2019-06-22 17:01] VITALS: BP 141/85
[2019-06-22] MEDS ORDERED: DILTIAZEM HCL 30MG TABLET PO SCH (18:00)
== END 2019-06-22 18:00 | disposition home or self-care (01) | DRG 312 ==
LOC: ER 09:15 → 8WST 10:49 → ENRESERV 11:29
PROVIDERS: ADMIT Internal Medicine; ATTEND Internal Medicine
DX: R55 Syncope and collapse (principal); D64.9 Anemia, unspecified; G40.909 Epilepsy, unspecified, not intractable, without status epilepticus; G89.29 Other chronic pain; T40.2X5A Adverse effect of other opioids, initial encounter; M54.9 Dorsalgia, unspecified; I10 Essential (primary) hypertension; I48.91 Unspecified atrial fibrillation; Z86.711 Personal history of pulmonary embolism; Z86.73 Personal history of transient ischemic attack (TIA), and cerebral infarction without residual deficits; Y92.89 Other specified places as the place of occurrence of the external cause
CPT/HCPCS: 36415; 71045; 80061; 83735; 83880; 84100; 84443; 84484; 93005; 93880; 93970; 97161; 97165; 99285; J1170; J1650; J1885

== ENCOUNTER 2019-06-29 17:22 | Inpatient (IN) | payer MEDICARE ==
[~2019-06-29] VITALS: Ht 185.4 cm; Wt 80.7 kg
[~2019-06-29 17:22] MED LIST: GABA800T97 MT; IBUP-2029 MT; KEPPSOL MT; LISI30TA36 MT
[2019-06-29 18:48] LABS: BASOPHILS % 0.5 % (0.0-2.0); EOSINOPHILS % 2.9 % (0.0-5.0); LYMPHOCYTES % 22.5 % (20.0-50.0); MEAN CORPUSCULAR HEMOGLOBIN 30.9 pg (28.0-32.0); MEAN PLATELET VOLUME 8.5 fl (7.4-10.4); MONOCYTES % 7.9 % (2.0-8.0); NEUTROPHILS % 66.2 % (40.0-76.0); PLATELET 223 x1000/uL (130-400); RED BLOOD CELL COUNT 4.22 mill/uL (4.7-6.1); RED CELL DISTRIBUTION WIDTH 15.4 % (11.6-14.6)
[2019-06-29 18:55] LABS: CHLORIDE 115 mEq/L (98-107)
[2019-06-29 18:59] LABS: ETHANOL BLOOD < 10 mg/dL
[2019-06-29 21:11] VITALS: BP 152/91
[2019-06-29] MEDS ORDERED: MECLIZINE 25MG TABLET PO PRN (22:15)
[2019-06-29] MEDS ORDERED: CLONIDINE 0.1MG TABLET PO PRN (22:15)
[2019-06-29] MEDS ORDERED: DOCUSATE SODIUM 100MG CAPSULE PO PRN (22:15)
[2019-06-29] MEDS ORDERED: MAGNESIUM/ALUMINUM HYDROXIDE/SIMETHICONE 30ML UDC PO PRN (22:15)
[2019-06-29] MEDS ORDERED: ONDANSETRON HCL 4MG/2ML INJ IV PRN (22:15)
[2019-06-29] MEDS ORDERED: ACETAMINOPHEN 325MG TABLET PO PRN (22:15)
[2019-06-29] MEDS ORDERED: IPRATROPIUM/ALBUTEROL 0.5-3(2.5)MG/3ML NEB NEB PRN (22:15)
[2019-06-29 22:30] VITALS: BP 152/91
[2019-06-29 23:13] LABS: CHLORIDE 116 mEq/L (98-107)
[2019-06-29] MEDS ORDERED: DEXTROSE 50% WATER 50ML SYRINGE IV PRN (23:30)
[2019-06-30] VITALS: BP_SYST 131; BP_SYST 144; BP_SYST 148; BP_DIAS 73; BP_DIAS 78; BP_DIAS 79
[2019-06-30] MEDS: SODIUM CHLORIDE 0.9% 1,000 ML IV SCH ×2 (00:39→15:17)
[2019-06-30 04:00] VITALS: BP 116/64
[2019-06-30] MEDS: INSULIN LISPRO 100 UNITS/ML SUBCUT SCH ×4 (06:55→21:00)
[2019-06-30] MEDS: BLOOD SUGAR DIAGNOSTIC STRIP TEST SCH ×4 (06:55→21:00)
[2019-06-30 07:28] LABS: BASOPHILS % 0.8 % (0.0-2.0); EOSINOPHILS % 3.8 % (0.0-5.0); HEMATOCRIT. 35.8 % (42.0-52.0); HEMOGLOBIN. 11.9 g/dL (14.0-18.0); MEAN CORPUSCULAR HEMOGLOBIN 31.4 pg (28.0-32.0); MEAN CORPUSCULAR VOLUME 94.8 fL (80.0-94.0); MEAN PLATELET VOLUME 8.2 fl (7.4-10.4); MONOCYTES % 7.9 % (2.0-8.0); NEUTROPHILS % 52.5 % (40.0-76.0); PLATELET 193 x1000/uL (130-400); RED BLOOD CELL COUNT 3.78 mill/uL (4.7-6.1); RED CELL DISTRIBUTION WIDTH 15.1 % (11.6-14.6)
[2019-06-30 08:00] VITALS: BP_SYST 120; BP_SYST 133; BP_DIAS 71; BP_DIAS 79
[2019-06-30 08:24] LABS: CREATINE KINASE 28 IU/L (39-308)
[2019-06-30 08:25] LABS: LDL CHOLESTEROL 85 mg/dL (5-100)
[2019-06-30 08:26] LABS: CREATINE KINASE MB FRACTION < 1.0 ng/mL (0.5-3.6)
[2019-06-30 08:27] LABS: HDL CHOLESTEROL 33 mg/dL (40-59)
[2019-06-30 09:51] LABS: CLARITY URINE CLOUDY (CLEAR); COLOR URINE YELLOW (YELLOW); KETONES URINE TRACE (NEGATIVE); LEUKOCYTE ESTERASE URINE NEGATIVE (NEGATIVE); NITRITE URINE NEGATIVE (NEGATIVE); OCCULT BLOOD URINE NEGATIVE (NEGATIVE); PROTEIN URINE TRACE (NEGATIVE); SPECIFIC GRAVITY URINE 1.025 (1.005-1.030); UROBILINOGEN URINE 0.2 E.U./dL (0.2-1.0)
[2019-06-30] MEDS: ENOXAPARIN 40MG/0.4ML SYR SUBCUT SCH (09:59)
[2019-06-30] MEDS: HYDROCODONE/ACETAMINOPHEN 5/325MG TABLET PO PRN ×3 (10:05→20:42)
[2019-06-30 10:24] LABS: *AMPHETAMINES SCREEN URINE NEGATIVE (NEGATIVE); *BARBITURATES SCREEN URINE NEGATIVE (NEGATIVE)
[2019-06-30 10:25] LABS: *BENZODIAZEPINES SCREEN URINE NEGATIVE (NEGATIVE); *COCAINE SCREEN URINE NEGATIVE (NEGATIVE); CANNABINOID URINE SCREEN NEGATIVE (NEGATIVE); METHADONE URINE SCREEN NEGATIVE (NEGATIVE); OPIATES URINE SCREEN PRESUMTIVE POSITIVE (NEGATIVE); PHENCYCLIDINE URINE SCREEN NEGATIVE (NEGATIVE)
[2019-06-30 12:00] VITALS: BP 131/68
[2019-06-30] MEDS ORDERED: LACTULOSE 20G/30ML UDC PO NR (13:17)
[2019-06-30 16:00] VITALS: BP 130/70
[2019-06-30 16:11] LABS: CREATINE KINASE 26 IU/L (39-308)
[2019-06-30 16:12] LABS: CREATINE KINASE MB FRACTION < 1.0 ng/mL (0.5-3.6)
[2019-06-30 20:00] VITALS: BP_SYST 135; BP_SYST 141; BP_SYST 143; BP_DIAS 78; BP_DIAS 81; BP_DIAS 87
[2019-06-30] MEDS: LEVETIRACETAM 500MG TABLET PO SCH (20:42)
[2019-07-01] VITALS: BP 125/79
[2019-07-01] MEDS: HYDROCODONE/ACETAMINOPHEN 5/325MG TABLET PO PRN ×3 (03:24→13:55)
[2019-07-01 04:00] VITALS: BP 127/76
[2019-07-01] MEDS: SODIUM CHLORIDE 0.9% 1,000 ML IV SCH ×2 (06:02→13:56)
[2019-07-01] MEDS: BLOOD SUGAR DIAGNOSTIC STRIP TEST SCH ×3 (07:05→16:51)
[2019-07-01] MEDS: INSULIN LISPRO 100 UNITS/ML SUBCUT SCH ×3 (07:05→16:52)
[2019-07-01 07:46] LABS: BASOPHILS % 0.6 % (0.0-2.0); EOSINOPHILS % 3.3 % (0.0-5.0); HEMATOCRIT. 33.8 % (42.0-52.0); HEMOGLOBIN. 11.3 g/dL (14.0-18.0); LYMPHOCYTES % 37.7 % (20.0-50.0); MEAN CORPUSCULAR HEMOGLOBIN 31.4 pg (28.0-32.0); MEAN CORPUSCULAR VOLUME 94.3 fL (80.0-94.0); MEAN PLATELET VOLUME 8.3 fl (7.4-10.4); MONOCYTES % 7.9 % (2.0-8.0); NEUTROPHILS % 50.5 % (40.0-76.0); PLATELET 177 x1000/uL (130-400); RED BLOOD CELL COUNT 3.58 mill/uL (4.7-6.1); RED CELL DISTRIBUTION WIDTH 15.1 % (11.6-14.6)
[2019-07-01 07:51] LABS: CHLORIDE 113 mEq/L (98-107)
[2019-07-01 08:00] VITALS: BP 145/80
[2019-07-01] MEDS: ENOXAPARIN 40MG/0.4ML SYR SUBCUT SCH (08:25)
[2019-07-01] MEDS: LEVETIRACETAM 500MG TABLET PO SCH (08:25)
[2019-07-01 12:00] VITALS: BP 140/93
[2019-07-01] MEDS ORDERED: NICOTINE 21MG PATCH TD SCH (12:15)
[2019-07-01] MEDS ORDERED: POTASSIUM CHLORIDE 20MEQ TABLET SR PO NR (12:15)
[2019-07-01] MEDS ORDERED: KEPPSOL MT (15:26)
[2019-07-01] MEDS ORDERED: HYDROMORPHONE HCL/PF 2MG/ML CPJ IV NR (15:30)
[2019-07-01 16:00] VITALS: BP 127/94
[2019-07-01 16:52] VITALS: BP 127/94
== END 2019-07-01 17:50 | disposition home or self-care (01) | DRG 74 ==
LOC: ER 17:22 → 5WST 20:09 → EDBEDREQ 20:11 → EDBEDREQTM 20:11 → ENRESERV 20:57
PROVIDERS: ADMIT Internal Medicine; ATTEND Internal Medicine
DX: G90.8 Other disorders of autonomic nervous system (principal); D64.9 Anemia, unspecified; E11.9 Type 2 diabetes mellitus without complications; E78.5 Hyperlipidemia, unspecified; E87.8 Other disorders of electrolyte and fluid balance, not elsewhere classified; F17.210 Nicotine dependence, cigarettes, uncomplicated; G40.909 Epilepsy, unspecified, not intractable, without status epilepticus; I10 Essential (primary) hypertension; Z86.73 Personal history of transient ischemic attack (TIA), and cerebral infarction without residual deficits; Z88.5 Allergy status to narcotic agent; Z71.6 Tobacco abuse counseling; Z79.84 Long term (current) use of oral hypoglycemic drugs
CPT/HCPCS: 36415; 71045; 80048; 80061; 80305; 80320; 81003; 82140; 82550; 82553; 82962; 83605; 83735; 84443; 84484; 93005; 99285; J1170; J1650; J7030; G0480

== ENCOUNTER 2019-07-13 10:53 | Emergency (ER) | payer MEDICARE ==
[~2019-07-13] VITALS: Ht 188 cm; Wt 82.0 kg
[2019-07-13 10:56] VITALS: BP 137/89
== END 2019-07-13 12:15 | disposition left against medical advice (07) ==
LOC: ER 10:53
DX: G89.29 Other chronic pain (principal); M54.5 Low back pain; E11.9 Type 2 diabetes mellitus without complications; I10 Essential (primary) hypertension; Z86.73 Personal history of transient ischemic attack (TIA), and cerebral infarction without residual deficits; Z98.890 Other specified postprocedural states; Z88.6 Allergy status to analgesic agent; Z79.899 Other long term (current) drug therapy
CPT/HCPCS: 99283

== ENCOUNTER 2019-07-13 12:52 | Emergency (ER) | payer MEDICARE ==
[~2019-07-13] VITALS: Ht 180.3 cm; Wt 80.0 kg
[2019-07-13] MEDS ORDERED: KETOROLAC 15MG/ML VIAL IV ONE (15:30)
[2019-07-13 15:40] LABS: CLARITY URINE CLEAR (CLEAR); COLOR URINE YELLOW (YELLOW); KETONES URINE 1+ (NEGATIVE); LEUKOCYTE ESTERASE URINE NEGATIVE (NEGATIVE); NITRITE URINE NEGATIVE (NEGATIVE); OCCULT BLOOD URINE 1+ (NEGATIVE); PROTEIN URINE TRACE (NEGATIVE); SPECIFIC GRAVITY URINE 1.011 (1.005-1.030); UROBILINOGEN URINE 0.2 E.U./dL (0.2-1.0)
[2019-07-13 15:58] LABS: BASOPHILS % 0.6 % (0.0-2.0); HEMATOCRIT. 41.8 % (42.0-52.0); MEAN CORPUSCULAR HEMOGLOBIN 31.5 pg (28.0-32.0); MEAN CORPUSCULAR VOLUME 94.3 fL (80.0-94.0); MEAN PLATELET VOLUME 8.8 fl (7.4-10.4); MONOCYTES % 6.7 % (2.0-8.0); NEUTROPHILS % 70.7 % (40.0-76.0); PLATELET 246 x1000/uL (130-400); RED BLOOD CELL COUNT 4.43 mill/uL (4.7-6.1); RED CELL DISTRIBUTION WIDTH 14.8 % (11.6-14.6)
[2019-07-13 16:31] LABS: CHLORIDE 109 mEq/L (98-107)
[2019-07-13] MEDS ORDERED: POTASSIUM CHLORIDE 20MEQ TABLET SR PO NR (17:00)
[2019-07-13] MEDS ORDERED: POTASSIUM CHLORIDE 20MEQ TABLET SR PO ONE (18:15)
[2019-07-13 18:29] VITALS: BP 145/90
== END 2019-07-13 18:30 | disposition home or self-care (01) ==
LOC: ER 12:52
DX: G89.29 Other chronic pain (principal); M54.9 Dorsalgia, unspecified; E87.6 Hypokalemia; E11.9 Type 2 diabetes mellitus without complications; I10 Essential (primary) hypertension; Z88.6 Allergy status to analgesic agent; Z79.899 Other long term (current) drug therapy
CPT/HCPCS: 36415; 71045; 80053; 81003; 85025; 96374; 99284; J1885